=== PATIENT | female | born 1995 | race Caucasian/White ===

== ENCOUNTER 2019-03-22 20:57 | Emergency (ER) ==
[2019-03-22 22:11] VITALS: BP 125/74
== END 2019-03-22 22:30 | disposition left against medical advice (07) ==
LOC: ER 20:57
DX: Z53.21 Procedure and treatment not carried out due to patient leaving prior to being seen by health care provider (principal); R10.9 Unspecified abdominal pain

== ENCOUNTER 2019-03-26 13:15 | Emergency (ER) | payer OTHER ==
[2019-03-26 18:48] LABS: APPEARANCE,URINE SLIGHTLY-CLOUDY; BILIRUBIN,URINE NEGATIVE (NEGATIVE); COLOR,URINE YELLOW; GLUCOSE, URINE NEGATIVE (NEGATIVE); KETONES,URINE NEGATIVE (NEGATIVE); LEUKOCYTE ESTERASE,URINE LARGE (NEGATIVE); NITRITE,URINE NEGATIVE (NEGATIVE); PROTEIN,URINE NEGATIVE (NEGATIVE); URINE SPECIFIC GRAVITY 1.024; UROBILINOGEN,URINE NEGATIVE mg/dL (<2.0)
[2019-03-26 18:49] LABS: ABSOLUTE EOSINOPHILS # (AUTO) 0.1 10^3/uL (0.0-0.6); ABSOLUTE LYMPHOCYTES (AUTO) 1.6 10^3/uL (0.5-4.7); ABSOLUTE MONOCYTES (AUTO) 0.6 10^3/uL (0.1-1.4); ABSOLUTE NEUT (AUTO) 5.2 10^3/uL (1.7-8.2); BASOPHILS % (AUTO) 0.6 % (0-2); EOSINOPHILS % (AUTO) 1.6 % (0-6); HEMATOCRIT 37.9 % (36.0-47.0); HEMOGLOBIN 12.9 g/dL (12.0-15.5); LYMPHOCYTES % (AUTO) 21.6 % (13-45); MEAN CORPUSCULAR HEMOGLOBIN 28.3 pg (27.0-33.4); MEAN CORPUSCULAR HGB CONC 34.1 g/dL (32.0-36.0); MEAN CORPUSCULAR VOLUME 83 fl (80-97); MONOCYTES % (AUTO) 7.9 % (3-13); PLATELET COUNT 218 10^3/uL (150-450); RED BLOOD COUNT 4.56 10^6/uL (3.72-5.28); RED CELL DISTRIBUTION WIDTH 13.8 % (11.5-14.0); SEGMENTED NEUTROPHILS % (AUTO) 68.3 % (42-78); TOTAL CELLS COUNTED % (AUTO) 100 %; WHITE BLOOD COUNT 7.6 10^3/uL (4.0-10.5)
--- NOTE | 2019-03-26 18:57 | ER Document Report ---
ED General - General Chief Complaint: Vaginal Pain Stated Complaint: VAGINAL PAIN Time Seen by Provider: 03/26/19 18:30 Mode of Arrival: Ambulatory Information source: Patient, [facility] Records Notes: 23-year-old female with no reported past medical history presents with complaint of lower abdominal pain that started 1 week prior to arrival. Patient describes the pain as a constant cramping pain with associated pressure. She denies any aggravating or alleviating factors. She states that this feels like "[place]". She does not believe she is as she states her last menstrual period was March 10, 2019. Patient also complaining of thin white copious discharge. She is sexually active with one partner. She denies any concern for STDs. She also reports 1 week of loose stools. She denies any black or bloody stools, fever, nausea, vomiting, chest pain, shortness of breath, upper abdominal pain, back pain. Patient has not taken any medication for this. TRAVEL OUTSIDE OF THE [place] IN LAST 30 DAYS: No - HPI Onset: Last week Onset/Duration: Gradual, Persistent Quality of pain: Cramping, Pressure Severity: Moderate Pain Level: 2 Associated symptoms: Diarrhea. denies: Chest pain, Chills, Nonproductive cough, Earache, Headache, Nausea, Vomiting, Shortness of breath, Sweating, Weakness Relieved by: Denies Similar symptoms previously: No Recently seen / treated by doctor: No - Related Data Allergies/Adverse Reactions: No Known Allergies Allergy (Unverified 03/26/19 13:21) Past Medical History - General Information source: Patient, [facility] Records - Social History Smoking Status: Current Every Day Smoker Cigarette use (# per day): Yes - 15 Smoking Education Provided: Yes - Smoking cessation counseling was provided for 4 minutes at the bedside Frequency of alcohol use: None Drug Abuse: None Lives with: Family, Spouse/Significant other Family History: Reviewed & Not Pertinent Patient has suicidal ideation: No Patient has homicidal ideation: No - Medical History Medical History: Negative Renal/ Medical History: Denies: Hx Peritoneal Dialysis Review of Systems - Review of Systems Notes: REVIEW OF SYSTEMS: CONSTITUTIONAL : Denies fever, chills, or sweats. Denies recent illness. Denies weight loss, recent hospitalizations. EENT: Denies visual changes, eye pain. Denies sore throat, oral lesions, difficulty swallowing. CARDIOVASCULAR: Denies chest pain. Denies palpitations. Denies lower extremity edema. RESPIRATORY: Denies cough. Denies shortness of breath, wheezing. GASTROINTESTINAL: Denies abdominal distention. Denies nausea, vomiting. + diarrhea. Denies blood in vomitus, stools, or per rectum. Denies black, tarry stools. Denies constipation. GENITOURINARY: Denies difficulty urinating, painful urination, frequency, blood in urine. + vaginal discharge. MUSCULOSKELETAL: Denies back or neck pain or stiffness. Denies joint pain or swelling. SKIN: Denies rash, lesions or sores. HEMATOLOGIC : Denies easy bruising or bleeding. LYMPHATIC: Denies swollen glands. NEUROLOGICAL: Denies confusion or altered mental status. Denies loss of consciousness. Denies dizziness or lightheadedness. Denies headache. Denies weakness or paralysis. Denies problems difficulty with ambulation, slurred speech. Denies sensory loss, numbness, or tingling. Denies seizures. PSYCHIATRIC: Denies anxiety or stress. Denies depression, suicidal ideation, or homicidal ideation. Denies visual or auditory hallucinations. Physical Exam - Vital signs Vitals: Temp Pulse Resp BP Pulse Ox 98.2 F 104 H 16 118/67 93 03/26/19 13:53 03/26/19 13:53 03/26/19 13:53 03/26/19 13:53 03/26/19 13:53 - Notes Notes: PHYSICAL EXAMINATION: GENERAL: Well-appearing, well-nourished and in no acute distress. HEAD: Atraumatic, normocephalic. EYES: Pupils equal round and reactive to light, extraocular movements intact, conjunctiva are normal. ENT: Nares patent, oropharynx clear without exudates. Moist mucous membranes. NECK: Normal range of motion, supple without lymphadenopathy LUNGS: Breath sounds clear to auscultation bilaterally and equal. No wheezes rales or rhonchi. HEART: Regular rate and rhythm without murmurs ABDOMEN: Soft, nontender, nondistended abdomen. No guarding, no rebound. No masses appreciated. Female : Pelvic exam; External genitalia unremarkable.Speculum exam with thin white discharge discharge. Vaginal wall unremarkable. Os closed. No cervical motion tenderness. No adnexal tenderness or masses appreciated. Swabs obtained for gonorrhea, chlamydia and wet prep. Musculoskeletal: Normal range of motion, no pitting or edema. No cyanosis. NEUROLOGICAL: Cranial nerves grossly intact. Normal speech, normal gait. Normal sensory, motor exams PSYCH: Normal mood, normal affect. SKIN: Warm, Dry, normal turgor, no rashes or lesions noted. Course - Re-evaluation Re-evalutation: Laboratory 03/26/19 03/26/19 18:27 18:27 WBC 7.6 RBC 4.56 Hgb 12.9 Hct 37.9 MCV 83 MCH 28.3 MCHC 34.1 RDW 13.8 Plt Count 218 Seg Neutrophils % 68.3 Lymphocytes % 21.6 Monocytes % 7.9 Eosinophils % 1.6 Basophils % 0.6 Absolute Neutrophils 5.2 Absolute Lymphocytes 1.6 Absolute Monocytes 0.6 Absolute Eosinophils 0.1 Absolute Basophils 0.0 Urine Color YELLOW Urine Appearance SLIGHTLY-CLOUDY Urine pH 5.0 Ur Specific [place] 1.024 Urine Protein NEGATIVE Urine Glucose (UA) NEGATIVE Urine Ketones NEGATIVE Urine Blood NEGATIVE Urine Nitrite NEGATIVE Urine Bilirubin NEGATIVE Urine Urobilinogen NEGATIVE Ur Leukocyte Esterase LARGE H Urine WBC (Auto) 62 Urine RBC (Auto) 2 Squamous Epi Cells Auto 9 Urine Mucus (Auto) RARE Urine Ascorbic Acid NEGATIVE Temp Pulse Resp BP Pulse Ox 98.2 F 104 H 16 118/67 93 03/26/19 13:53 03/26/19 13:53 03/26/19 13:53 03/26/19 13:53 03/26/19 13:53 03/26/19 19:01 23-year-old female presents with 1 week of pelvic pain, vaginal discharge and diarrhea. Vital signs reviewed and patient is mildly tachycardic but afebrile. She does not appear toxic or dehydrated. She is in no acute distress. Previous medical records and nursing notes reviewed. CBC is without leukocytosis or anemia. Urinalysis consistent with urinary tract infection. Wet mount, GC and Chlamydia are pending. Patient will receive Toradol and Keflex during her ED course. 03/26/19 21:47 Patient was evaluated and treated as appropriate for the patient's presenting symptoms and complaint, with consideration of any critical or life threatening conditions that may be associated with their obtained history and exam as noted above. All results were discussed with patient. Patient provided the opportunity to ask questions, and express concerns. Patient was educated on treatments based on their presumed diagnosis as noted above. At this time we will discharge the patient with return precautions and follow-up recommendations. Verbal discharge instructions given a the bedside. Medication warnings reviewed. Patient is in agreement with this plan and has verbalized understanding of return precautions. After careful consideration I feel that that patient can be safely discharged from the emergency department, they were advised to followup with a primary care physician in 2-3 days. Dictation on this chart was performed using voice recognition software and may result in unintended grammatical, spelling, syntax or errors. - Vital Signs Vital signs: Temp Pulse Resp BP Pulse Ox 98.4 F 68 16 98/66 L 99 03/26/19 20:29 03/26/19 20:29 03/26/19 20:29 03/26/19 20:29 03/26/19 20:29 - Laboratory Result Diagrams: 03/26/19 18:27 Laboratory results interpreted by me: 03/26/19 18:27 Ur Leukocyte Esterase LARGE H Discharge - Discharge Clinical Impression: Bacterial vaginosis UTI (urinary tract infection) Qualifiers: Urinary tract infection type: site unspecified Hematuria presence: without hematuria Qualified Code(s): N39.0 - Urinary tract infection, site not specified Condition: Good Disposition: HOME, SELF-CARE Instructions: Pelvic Pain ([facility]), Urinary Tract Infection ([facility]) Additional Instructions: You are being treated for bacterial vaginosis, an overgrowth of normal bacteria in the vagina. You are being sent home on an antibiotic called metronidazole. Take exactly as directed. Never drink alcohol while taking this antibiotic. Please return if you develop abdominal pain, fever greater than 101F, some vomiting, or any other symptoms that are concerning to you. Prescriptions: Cephalexin Monohydrate [Keflex 500 mg Capsule] 500 mg PO BID 5 Days #10 capsule Metronidazole [Flagyl 500 mg Tablet] 500 mg PO BID #10 tablet
[2019-03-26] MEDS ORDERED: KETOROLAC TROMETHAMINE INJ/PF 30 MG/1 ML SDV IV ONE (18:58)
[2019-03-26] MEDS ORDERED: CEPHALEXIN 500 MG CAPSULE PO ONE (19:02)
[2019-03-26 20:32] VITALS: BP 98/66
== END 2019-03-26 20:32 | disposition home or self-care (01) ==
LOC: ER 13:15
DX: N76.0 Acute vaginitis (principal); B96.89 Other specified bacterial agents as the cause of diseases classified elsewhere; N39.0 Urinary tract infection, site not specified; R19.7 Diarrhea, unspecified; F17.210 Nicotine dependence, cigarettes, uncomplicated; Z71.6 Tobacco abuse counseling
CPT/HCPCS: 99284; 96374; 36415; 85025; 81025; 81001; J1885